=== PATIENT | female | born 1965 | race African-American/Black ===

== ENCOUNTER 2018-04-13 14:13 | Emergency (ER) | payer MEDICAID ==
[~2018-04-13] VITALS: Ht 165.1 cm; Wt 79.0 kg
[2018-04-13 14:22] VITALS: BP 131/70
== END 2018-04-13 15:20 | disposition home or self-care (01) ==
LOC: ER 14:13
DX: J06.9 Acute upper respiratory infection, unspecified (principal); F12.10 Cannabis abuse, uncomplicated
CPT/HCPCS: 99283

== ENCOUNTER 2018-11-12 12:45 | Emergency (ER) | payer MEDICAID ==
[~2018-11-12] VITALS: Ht 167.6 cm; Wt 81.4 kg
[2018-11-12 15:41] VITALS: BP 133/80
== END 2018-11-12 15:43 | disposition home or self-care (01) ==
LOC: ER 13:11
DX: M72.2 Plantar fascial fibromatosis (principal); F12.10 Cannabis abuse, uncomplicated
CPT/HCPCS: 73630; 99283

== ENCOUNTER 2019-10-16 07:56 | Emergency (ER) | payer MEDICAID ==
[~2019-10-16] VITALS: Ht 160 cm; Wt 62.0 kg
[2019-10-16 08:29] VITALS: BP 136/92
[2019-10-16] MEDS ORDERED: IBUPROFEN 600MG TABLET PO ONE (08:30)
== END 2019-10-16 09:06 | disposition home or self-care (01) ==
LOC: ER 07:56
DX: B34.9 Viral infection, unspecified (principal); J02.9 Acute pharyngitis, unspecified; F12.10 Cannabis abuse, uncomplicated
CPT/HCPCS: 71045; 99283

== ENCOUNTER 2022-05-30 10:43 | Emergency (ER) | payer MEDICAID ==
[~2022-05-30] VITALS: Ht 165.1 cm; Wt 78.0 kg
[2022-05-30 10:54] VITALS: BP 135/91
[2022-05-30] MEDS ORDERED: ONDANSETRON 4MG ODT PO ONE (14:15)
[2022-05-30] MEDS ORDERED: FAMOTIDINE 20MG TABLET PO ONE (14:15)
[2022-05-30] MEDS ORDERED: ACETAMINOPHEN 325MG TABLET PO ONE (14:15)
[2022-05-30] MEDS ORDERED: MAGNESIUM/ALUMINUM HYDROXIDE/SIMETHICONE 30ML UDC PO ONE (14:15)
[2022-05-30] MEDS ORDERED: FAMO-135 MT (15:29)
== END 2022-05-30 15:37 | disposition home or self-care (01) ==
LOC: ER 10:43
DX: R10.84 Generalized abdominal pain (principal); F12.10 Cannabis abuse, uncomplicated
CPT/HCPCS: 81025; 99284; Q0162